=== PATIENT | female | born 1965 | race Caucasian/White ===

== ENCOUNTER 2020-06-30 00:04 | Emergency (ER) | payer OTHER ==
[~2020-06-30] VITALS: Ht 162.6 cm; Wt 77.1 kg
[2020-06-30] MEDS ORDERED: FISH OIL 1,0001 EAC9 PO (00:19)
[2020-06-30 01:07] LABS: ABSOLUTE BASOPHILS 0.1 thou/uL (0.0-0.2); ABSOLUTE EOSINOPHILS 0.2 thou/uL (0.0-0.7); ABSOLUTE LYMPHOCYTES 2.3 thou/uL (0.8-5.3); ABSOLUTE MONOCYTES 0.6 thou/uL (0.0-1.2); ABSOLUTE NEUTROPHILS 3.3 thou/uL (1.6-8.1); BASOPHILS 1.2 %; EOSINOPHILS 3.2 %; HEMATOCRIT 42.1 % (37.0-47.0); HEMOGLOBIN 15.1 gm/dL (12.0-15.0); LYMPHOCYTES 35.7 %; MCH 30.7 pg (26.0-34.0); MCHC 35.9 g/dL (28.0-37.0); MCV 85.4 fL (80.0-100.0); MONOCYTES 9.1 %; MPV 8.2 fl. (7.2-11.1); NUCLEATED RBCS 0 /100WBC; PLATELET COUNT* 221 thou/uL (150-400); POLYS 50.8 %; RBC 4.94 mil/uL (4.20-5.00); RDW-CV 12.8 % (10.5-14.5); WBC 6.4 thou/uL (4.0-11.0)
[2020-06-30 01:11] LABS: CALCIUM 9.1 mg/dL (8.5-10.1); CREATININE 0.8 mg/dL (0.6-1.3); POTASSIUM 3.6 mmol/L (3.5-5.1)
[2020-06-30 01:13] LABS: APTT 26.6 Seconds (25.0-31.3); PROTIME 10.7 Seconds (9.20-11.50)
[2020-06-30] MEDS ORDERED: NORCO 5-325 TA1 EAC2 PO (01:16)
[2020-06-30] MEDS ORDERED: FLEXERIL PO (01:16)
[2020-06-30 01:25] LABS: ALBUMIN 4.2 g/dL (3.4-5.0); CK-MB MASS 0.8 ng/mL (<0.5-3.6); MAGNESIUM 2.1 mg/dL (1.8-2.4); TOTAL BILIRUBIN 0.5 mg/dL (<0.1-1.0); TOTAL PROTEIN 7.3 g/dL (6.4-8.2)
[2020-06-30 01:38] VITALS: BP 177/68
--- NOTE | 2020-06-30 09:44 | EKG ---
[place] [address] ELECTROCARDIOGRAM REPORT Name: JARROD HARDIN Room: [facility]#: [id number] Admission: 06/30/20 Attend Phys: Discharge: 06/30/20 Date of : 65 Date of Service: 06/30/20 0117 Report #: [id number] THIS REPORT FOR: //name// [facility] ED Test Date: 2020-06-30 Test Time: 01:17:38 Pat Name: JARROD HARDIN Department: Room: Gender: F [employer]: RASHEEDA : 1965 Requested By: Leander Coffman Order Number: [id number] MD: Lon Driscoll Measurements Intervals [place] Rate: 71 P: 58 [place]: 165 QRS: -9 QRSD: 96 T: -1 QT: 390 QTc: 424 Interpretive Statements Sinus rhythm Probable left ventricular hypertrophy Baseline wander in lead(s) V5 No previous ECG available for comparison Electronically Signed On 06-30-2020 9:43:53 CDT by Lon Driscoll [email or web address] <ELECTRONICALLY SIGNED> By: Lon Driscoll MD, [facility] 06/30/20 0943 0117 0117 Lon Driscoll MD, [facility] /EPI
== END 2020-06-30 01:38 | disposition home or self-care (01) ==
LOC: M.ERS 00:04
PROVIDERS: Family Medicine
DX: M54.2 Cervicalgia (principal); M25.512 Pain in left shoulder; R68.84 Jaw pain; R20.2 Paresthesia of skin; R79.1 Abnormal coagulation profile; Z79.899 Other long term (current) drug therapy